=== PATIENT | male | born 1945 | race Caucasian/White ===

== ENCOUNTER → 2016-10-04 | Outpatient (CLI) | payer MEDICARE ==
[~2016-10-04] MED LIST: DEXA1.5T PO; KEPP500T3 PO; PERC10TA27 PO; PROT40TA PO
--- NOTE | 2016-10-11 09:25 | RSPPFT ---
DATE OF PROCEDURE: 10/04/16 COMMENTS: Spirometry shows FVC of 4.4 predicted 5.3, FEV1 of 2.7 predicted 4.2, FEV1/FVC ratio 62% predicted 77%. Post-bronchodilator FVC increases to 5.2 and FEV1 to 3.0. Air trapping is present with RV at 3.9 predicted 2.8. DLCO is 65% of predicted. IMPRESSION: On the basis of the above, patient has an obstructive lung defect with responsiveness to acutely inhaled bronchodilator. Significant air trapping is present. DLCO is decreased.
== END ==
LOC: HRSP 09:44
PROVIDERS: ATTEND Internal Medicine
DX: J44.9 Chronic obstructive pulmonary disease, unspecified (principal); F17.200 Nicotine dependence, unspecified, uncomplicated
CPT/HCPCS: 94060; 94726; 94729